=== PATIENT | male | born 1940 | race Caucasian/White ===

== ENCOUNTER 2017-03-06 20:35 | Emergency (ER) | payer MEDICARE ==
--- NOTE | 2017-03-06 20:52 | ED Physician Documentation ---
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 Denies fever Review of Systems Constitutional: denies: Fever, Chills, Sweats Cardiac: denies: Chest pain / pressure Respiratory: denies: Dyspnea Musculoskeletal: reports: Extremity pain, Extremity swelling Neurologic: denies: Focal weakness, Numbness PD PAST MEDICAL HISTORY - Past Medical History Cardiovascular: Murmur Respiratory: None Neuro: None Endocrine/Autoimmune: None GI: Colon polyps : Benign prostate hypertrophy, Retention HEENT: None Psych: None Musculoskeletal: Osteoarthritis Derm: None - Past Surgical History Past Surgical History: Yes General: Colonoscopy Ortho: Knee replacement - Present Medications Home Medications: Ambulatory Orders Medication Instructions Recorded Confirmed Ascorbic Acid [Vitamin C] 1,000 mg PO DAILY 03/10/13 03/10/13 Cod Liver Oil 1 each PO DAILY 03/10/13 03/10/13 Multivitamin [Multivitamins] 1 each PO DAILY 03/10/13 03/10/13 Acton-3 Fatty Acids [Fish Oil] 300 mg PO DAILY 03/10/13 03/10/13 Tamsulosin [Flomax] 0.4 mg PO DAILY 03/10/13 03/10/13 Acetaminophen [Tylenol] 650 mg PO Q6H PRN 03/14/13 03/14/13 Tramadol HCl 50 mg PO TID 03/06/17 03/06/17 - Allergies Allergies/Adverse Reactions: Allergies Allergy/AdvReac Type Severity Reaction Status Date / Time naproxen sodium * AdvReac Intermediate Anxiety Verified 03/06/17 20:40 [From Aleve] - Social History Smoking Status: Never smoker PD ED PE NORMAL - Vitals Vital signs reviewed: Yes - General General: Alert and oriented X 3, No acute distress, Well developed/nourished - Derm Derm: Normal color, Warm and dry - Neuro Neuro: No motor deficit, No sensory deficit PD ED PE EXPANDED - Extremities Extremities: Tenderness (left knee), Joint effusion (left knee), Pedal edema L Results - Vitals Vitals: Vital Signs - 24 hr 03/06/17 03/07/17 20:40 00:08 Temperature 35.9 C L Heart Rate 74 71 Respiratory 18 16 Rate Blood Pressure 131/77 H 130/81 H O2 Saturation 96 95 Oxygen O2 Source Room air - Labs Labs: Laboratory Tests 03/06/17 03/06/17 03/06/17 21:21 21:21 21:21 WBC 8.1 RBC 4.57 L Hgb 13.5 L Hct 39.7 L MCV 86.9 MCH 29.6 MCHC 34.1 RDW 12.6 Plt Count 243 MPV 7.4 Neut # 4.6 Lymph # 1.7 [place] # 1.2 H Eos # 0.6 Baso # 0.1 Absolute Nucleated RBC 0.00 Nucleated RBCs 0.0 ESR 16 PT 11.6 INR 1.0 APTT 26.8 Sodium Potassium Chloride Carbon Dioxide Anion Gap BUN Creatinine Estimated GFR (MDRD) Glucose Calcium C-Reactive Protein 03/06/17 21:21 WBC RBC Hgb Hct MCV MCH MCHC RDW Plt Count MPV Neut # Lymph # [place] # Eos # Baso # Absolute Nucleated RBC Nucleated RBCs ESR PT INR APTT Sodium 135 Potassium 4.0 Chloride 101 Carbon Dioxide 26 Anion Gap 8.0 BUN 24 H Creatinine 0.9 Estimated GFR (MDRD) 82 L Glucose 107 H Calcium 9.3 C-Reactive Protein < 1.0 - Rads (name of study) LLE US Radiology: Prelim report reviewed, See rad report PD MEDICAL DECISION MAKING - ED course Complexity details: reviewed results, re-evaluated patient, considered differential, d/w patient ED course: D/W Juan Martini (orthopedics), including test results and exam findings. Agrees with plan to d/c from ED, f/u with ortho Wednesday as scheduled, return to ED if worse in any way. I discussed this plan with patient and he is comfortable with this plan. Departure - Departure Disposition: 01 Home, Self Care Clinical Impression: Peripheral edema Condition: Good Instructions: ED Leg Swelling Unilateral Comments: Follow up with your orthopedic surgeon Wednesday as scheduled. You can resume taking the aspirin 325mg by mouth once per day. Discharge Date/Time: 03/07/17 00:12
[2017-03-06 21:27] LABS: BASOPHILS # (AUTO) 0.1 10^3/uL (0.0-0.1); BASOPHILS % (AUTO) 1.1 %; EOSINOPHILS # (AUTO) 0.6 10^3/uL (0.0-0.7); EOSINOPHILS % (AUTO) 7.1 %; HCT - HEMATOCRIT 39.7 % (42.0-52.0); HGB - HEMOGLOBIN 13.5 g/dL (14.0-18.0); LYMPHOCYTES # (AUTO) 1.7 10^3/uL (1.5-3.5); LYMPHOCYTES % (AUTO) 21.1 %; MEAN CORPUSCULAR HEMOGLOBIN 29.6 pg (27.0-31.0); MEAN CORPUSCULAR HGB CONC 34.1 g/dL (32.0-36.0); MEAN CORPUSCULAR VOLUME 86.9 fL (80.0-94.0); MEAN PLATELET VOLUME 7.4 fL (7.4-11.4); MONOCYTES # (AUTO) 1.2 10^3/uL (0.0-1.0); MONOCYTES % (AUTO) 14.6 %; NEUTROPHILS # (AUTO) 4.6 10^3/uL (1.5-6.6); NEUTROPHILS % (AUTO) 56.1 %; RED BLOOD COUNT 4.57 10^6/uL (4.70-6.10); RED CELL DISTRIBUTION WIDTH 12.6 % (12.0-15.0); UNCORRECTED WHITE BLOOD COUNT 8.1 x10^3/uL; WHITE BLOOD COUNT 8.1 x10^3/uL (4.8-10.8)
[2017-03-06 21:35] LABS: PT - PROTHROMBIN TIME 11.6 secs (9.9-12.6)
[2017-03-06 21:42] LABS: PARTIAL THROMBOPLASTIN TIME 26.8 secs (24.9-33.3)
[2017-03-06 21:44] LABS: BUN - BLOOD UREA NITROGEN 24 mg/dL (6-20); CALCIUM 9.3 mg/dL (8.5-10.3); CARBON DIOXIDE - CO2 26 mmol/L (21-32); CHLORIDE 101 mmol/L (101-111); CREATININE 0.9 mg/dL (0.6-1.2); GFR - MDRD 82 (>89); GLUCOSE 107 mg/dL (70-100); SODIUM 135 mmol/L (135-145)
--- NOTE | 2017-03-06 22:48 | Ultrasound Preliminary Report ---
Exam: US Duplex Ext Veins Left IMPRESSION: No evidence for deep venous thrombosis. [facility] SITE ID: [id number]
--- NOTE | 2017-03-06 22:51 | Ultrasound Report ---
EXAM: LEFT LOWER EXTREMITY VENOUS ULTRASOUND EXAM DATE: 03/06/2017 10:01 PM. CLINICAL HISTORY: LLE swelling. COMPARISON: None. TECHNIQUE: Real-time sonographic vascular imaging was performed by the job spotter through the lower extremity utilizing both color-flow and Doppler spectral analysis. Multiple u.s. representative static izabella ges were saved for review. FINDINGS: Common Femoral Vein (CFV): Normal. CFV-GSV Junction: Normal. Profunda Femoral Vein (PFV): Normal. Femoral Vein (FV) Prox: Normal. Femoral Vein (FV) Mid: Normal. Femoral Vein (FV) Dist: Normal. Popliteal Vein: Normal. Posterior Tibial Veins: Normal. Peroneal Veins: Normal. Contralateral Side CFV: Normal. Other: None. IMPRESSION: No evidence for deep venous thrombosis. [facility] Referring Provider Line: [phone] SITE ID: [id number]
[2017-03-07 00:10] VITALS: BP 130/81
== END 2017-03-07 00:12 | disposition home or self-care (01) ==
LOC: ED 20:35
DX: R60.0 Localized edema (principal); Z96.652 Presence of left artificial knee joint; N40.0 Benign prostatic hyperplasia without lower urinary tract symptoms; M19.90 Unspecified osteoarthritis, unspecified site; Z86.010 Personal history of colon polyps
CPT/HCPCS: 36415; 80048; 85025; 85610; 85651; 85730; 86140; 99283

== ENCOUNTER 2018-01-04 08:02 | Outpatient (CLI) | payer MEDICARE ==
[2018-01-04 11:03] LABS: HB2 TOTAL 16.1 g/dL; HEMOGLOBIN A1C 0.58 g/dL; HEMOGLOBIN A1C % 5.4 % (4.6-6.2)
[2018-01-04 11:06] LABS: ALBUMIN 3.5 g/dL (3.2-5.5); ALKALINE PHOSPHATASE 76 IU/L (42-121); ALT ALANINE AMINOTRANSFERASE 23 IU/L (10-60); AST ASPARTATE AMINOTRANSFERASE 25 IU/L (10-42); BILIRUBIN,TOTAL 0.8 mg/dL (0.2-1.0); BUN - BLOOD UREA NITROGEN 17 mg/dL (6-20); CALCIUM 9.1 mg/dL (8.5-10.3); CARBON DIOXIDE - CO2 27 mmol/L (21-32); CHLORIDE 102 mmol/L (101-111); CHOL/HDL RATIO 3.4 (<5.0); CHOLESTEROL 169 mg/dL; CREATININE 0.9 mg/dL (0.6-1.2); GFR - MDRD 82 (>89); GLUCOSE 103 mg/dL (70-100); HDL CHOLESTEROL 50 mg/dL; LDL CHOLESTEROL,CALCULATED 95 mg/dL; LDL/HDL RATIO 1.9 (<3.6); SODIUM 136 mmol/L (135-145); TOTAL PROTEIN 7.1 g/dL (6.7-8.2); VLDL CHOLESTEROL 24 mg/dL
[2018-01-04 11:09] LABS: PSA FREE 0.168 ng/mL (0.16-2.81); PSA TOTAL 0.587 ng/mL (0.000-2.000)
== END 2018-01-04 08:03 | disposition home or self-care (01) ==
LOC: LAB.F 08:02
PROVIDERS: ATTEND Family Medicine
DX: Z00.00 Encounter for general adult medical examination without abnormal findings (principal); R73.01 Impaired fasting glucose; E78.5 Hyperlipidemia, unspecified; R97.20 Elevated prostate specific antigen [PSA]
CPT/HCPCS: 36415; 80053; 80061; 83036; 83721; 84154

== ENCOUNTER 2019-01-19 10:09 | Outpatient (CLI) | payer MEDICARE ==
[2019-01-19 17:28] LABS: ALBUMIN 4.1 g/dL (3.2-5.5); ALBUMIN/GLOBULIN RATIO 1.3 (1.0-2.2); ALKALINE PHOSPHATASE 56 IU/L (42-121); ALT ALANINE AMINOTRANSFERASE 25 IU/L (10-60); AST ASPARTATE AMINOTRANSFERASE 26 IU/L (10-42); BILIRUBIN,TOTAL 1.1 mg/dL (0.2-1.0); BUN - BLOOD UREA NITROGEN 21 mg/dL (6-20); CALCIUM 9.5 mg/dL (8.5-10.3); CARBON DIOXIDE - CO2 25 mmol/L (21-32); CHLORIDE 103 mmol/L (101-111); CHOL/HDL RATIO 3.6 (<5.0); CHOLESTEROL 204 mg/dL; CREATININE 0.8 mg/dL (0.6-1.2); GFR - MDRD 94 (>89); GLUCOSE 93 mg/dL (70-100); HDL CHOLESTEROL 56 mg/dL; LDL CHOLESTEROL,CALCULATED 106 mg/dL; LDL/HDL RATIO 1.9 (<3.6); SODIUM 138 mmol/L (135-145); TOTAL PROTEIN 7.3 g/dL (6.7-8.2); VLDL CHOLESTEROL 42 mg/dL
[2019-01-19 20:45] LABS: HB2 TOTAL 15.4 g/dL; HEMOGLOBIN A1C 0.54 g/dL; HEMOGLOBIN A1C % 5.4 % (4.6-6.2)
== END 2019-01-19 10:10 | disposition home or self-care (01) ==
LOC: LAB.S 10:09
PROVIDERS: ATTEND Internal Medicine
DX: E78.5 Hyperlipidemia, unspecified (principal); R73.02 Impaired glucose tolerance (oral); R61 Generalized hyperhidrosis
CPT/HCPCS: 36415; 80053; 80061; 83036; 83721; 84443